=== PATIENT | male | born 1975 | race Caucasian/White ===

== ENCOUNTER 2020-03-05 03:02 | Observation (INO) ==
[2020-03-05] MEDS ORDERED: *HR* LORazepam 0.5 MG TABLET PO ONE (03:07)
[2020-03-05 03:29] LABS: Bilirubin,Urine Small (Negative); Blood,Urine Negative (Negative); Clarity,Urine Clear (Clear); Color,Urine Dark Yellow (Yellow); Glucose,Urine (UA) Normal (Normal); Ketones,Urine 15 mg/dL (Negative); Leukocyte Esterase,Urine Negative (Negative); Nitrite,Urine Negative (Negative); Protein,Urine Trace mg/dL (Neg-Trace); Specific Gravity,Urine > 1.030 (1.010-1.025); Urobilinogen,Urine Normal (Normal)
[2020-03-05 03:33] LABS: Basophils % 0.5 %; Eosinophils # 0.1 K/mcL (0.0-0.6); Hematocrit 38.7 % (37.5-50.1); Hemoglobin 12.5 g/dL (12.9-16.9); Immature Granulocytes % 0.2 % (0-4); Lymphocytes # 2.1 K/mcL (0.6-4.6); Lymphocytes % 34.6 %; Mean Corpuscular HGB Conc 32.3 g/dL (31.6-35.5); Mean Corpuscular Hemoglobin 28.2 pg (28.0-33.3); Mean Corpuscular Volume 87.2 fL (83.0-100.0); Mean Platelet Volume 10.8 fL (9.4-12.4); Monocytes # 0.8 K/mcL (0.0-1.3); Monocytes % 13.3 %; Neutrophils # 2.9 K/mcL (1.6-8.9); Platelet Count 189 K/mcL (140-400); Red Blood Count 4.44 M/mcL (4.19-5.50); Red Cell Distribution Width 13.3 % (11.5-14.5); Segmented Neutrophils % 49.4 %; White Blood Count 5.9 K/mcL (4.3-11.1)
[2020-03-05 03:40] LABS: Amphetamine Screen,Urine Positive ng/mL (Cutoff=1000); Barbiturate Screen,Urine Negative ng/mL (Cutoff=200); Benzodiazepines Screen,Urine Negative ng/mL (Cutoff=200); Cannabinoid Screen,Urine Negative ng/mL (Cutoff = 50); Cocaine Screen,Urine Negative ng/mL (Cutoff= 300); Opiate Screen,Urine Negative ng/mL (Cutoff=300); Phencyclidine Screen,Urine Negative ng/mL (Cutoff=25)
[2020-03-05 03:49] LABS: Acetaminophen < 10 mcg/mL (10-20); BUN/Creatinine Ratio 20 (6-26); Blood Urea Nitrogen 19 mg/dL (6-20); Calcium 9.9 mg/dL (8.6-10.3); Carbon Dioxide 25 mEq/L (23-29); Chloride 106 mEq/L (98-107); Ethanol < 10 mg/dL (Less than 10); Glucose 94 mg/dL (70-105); Osmolality,Calculated 294 (280-300); Potassium 3.9 mEq/L (3.5-5.1); Salicylate < 2.5 mg/dL (15.0-30.0); Sodium 141 mEq/L (136-145); eGFR For African Americans > 60 (> 60); eGFR For Non-African Americans > 60 (> 60)
[2020-03-05] MEDS ORDERED: hydrOXYzine pamoate 25 MG CAPSULE PO PRN (05:55)
[2020-03-05] MEDS ORDERED: haloperidoL 5 MG TABLET PO PRN (05:55)
[2020-03-05] MEDS ORDERED: *HR* LORazepam 2 MG/ML VIAL IM PRN (05:55)
[2020-03-05] MEDS ORDERED: MOM Conc 10 ML UD.LIQ PO PRN (05:55)
[2020-03-05] MEDS ORDERED: Haloperidol Lactate 5 MG/ML VIAL IM PRN (05:55)
[2020-03-05] MEDS ORDERED: *HR* LORazepam 1 MG TABLET PO PRN (05:55)
[2020-03-05] MEDS ORDERED: QUEtiapine Fumarate 25 MG TABLET PO PRN (05:55)
[2020-03-05] MEDS ORDERED: Acetaminophen 325 MG TABLET PO PRN (05:55)
[2020-03-05] MEDS ORDERED: Mag Hydrox/Al Hydrox/Simeth 30 ML UDC PO PRN (05:55)
[2020-03-05] MEDS ORDERED: cloNIDine HCL 0.1 MG TABLET PO PRN (09:51)
[2020-03-05 10:02] VITALS: BP 120/67
== END 2020-03-05 15:40 | disposition home or self-care (01) ==
LOC: 1ANU 03:02 → EMEROOARM 03:02 → 1ANU 07:00
PROVIDERS: ADMIT Psychiatry & Neurology Psychiatry; ATTEND Psychiatry & Neurology Psychiatry